=== PATIENT | male | born 1975 | race Caucasian/White ===

== ENCOUNTER 2019-08-26 09:42 | Emergency (ER) | payer BC ==
--- OUTSIDE RECORDS SUMMARY | 2019-08-26 09:53 | XMS REPORT | Summary of Care ---
:1975 Author Organization [facility] Address [address] [place] [address] Care Team Providers Name Role Phone Josh Nugent Primary Care Provider Reason for Visit Reason Comments Physical Patient here for routine physical. Encounter Details Date Type Department Care Team Description 07/22/2019 Office Visit [place] [facility] Josh Nugent, Routine general medical examination at a health care facility (Primary Dx); Medicine Essential hypertension [address] [place], [place] [address] [place] [address] [phone] Allergies Active Allergy Reactions Severity Noted Date Comments Penicillins Unknown Reaction 07/29/2012 documented as of this encounter (statuses as of 07/22/2019) Medications Medication Sig Dispensed Refills Start Date End Date Status LISINOPRIL-HCTZ 20-25 MG Take 1 Tab by 90 Tab 5 06/29/2019 Active Oral TabIndications: mouth DAILY. Essential hypertension documented as of this encounter (statuses as of 07/22/2019) Active Problems Problem Noted Date White coat syndrome with hypertension 09/03/2018 Essential hypertension Overview: on ACEI/HCTZ since 2009 documented as of this encounter (statuses as of 07/22/2019) Immunizations Name Administration Dates Next Due Influenza (IM) Preservative Free 03/24/2018, 04/24/2017 Influenza (IM) W/Pres 05/06/2015 documented as of this encounter Social History Tobacco Use Types Packs/Day Years Used Date Never Smoker Smokeless Tobacco: Never Used Alcohol Use Drinks/Week oz/Week Comments Yes 2 Cans of beer 2.0 occasionally Sex Assigned at Date Recorded Not on file Job Start Date Occupation Industry Not on file Not on file Not on file Travel History Travel Start Travel End No recent travel history available. documented as of this encounter Last Filed Vital Signs Vital Sign Reading Time Taken Comments Blood Pressure 124/62 07/22/2019 8:35 AM EST Pulse 65 07/22/2019 8:35 AM EST Temperature - - Respiratory Rate - - Oxygen Saturation - - Inhaled Oxygen Concentration - - Weight 96.2 kg (212 lb) 07/22/2019 8:35 AM EST Height 194.3 cm (6' 4.5") 07/22/2019 8:35 AM EST Body Mass Index 25.47 07/22/2019 8:35 AM EST documented in this encounter Patient Instructions Patient InstructionsJosh Nugent MD - 07/22/2019 8:20 AM ESTBlood work today Do core Exercises for the low back pain [facility] goal weight is 205 lb The 6 recommendations below are much more powerful than any medication or vitamin available on the market: 1. Engage in at least 30 minutes of regular moderate physical activity every day. This means exerting yourself so that you become slightly short of breath and have difficulty speaking a full sentence when you are exercising. This could be walking, running, biking, swimming, hiking, or any other type of gym activity. 2. Eat at least 6 servings per day fruit and vegetable 3. Get at least 7 hours of restful sleep per night 4. Do not smoke tobacco or marijuana products 5. Drink no more than 2 serving of alcohol per day 6. Drink at least 8 full glasses of water per day documented in this encounter Progress Notes Josh Nugent MD - 07/22/2019 8:20 AM EST SUBJECTIVE: Zhou Gregorio is a 44-y.o. male for presenting for his annual checkup. Patient Active Problem List Diagnosis Essential hypertension White coat syndrome with hypertension Current Outpatient Medications Medication Sig LISINOPRIL-HCTZ 20-25 MG Oral Tab Take 1 Tab by mouth DAILY. No current facility-administered medications for this visit. Allergies: Penicillins ROS: Feeling well. No dyspnea or chest pain on exertion. No abdominal pain, change in bowel habits,black or bloody stools. No urinary tract or prostatic symptoms. No neurological complaints. OBJECTIVE: The patient appears well, alert, oriented x 3, in no distress. BP 124/62 | Pulse 65 | Ht 6' 4.5" (1.943 m) | Wt 212 lb (96.2 kg) | BMI 25.47 kg/m ENT normal. Neck supple. No adenopathy or thyromegaly. MAN[place]. Lungs are clear, good air entry, no wheezes, rhonchi or rales. S1 and S2 normal, no murmurs, regular rate and rhythm. Abdomen is soft without tenderness, guarding, mass or organomegaly. exam: no penile lesions or discharge, no testicular masses or tenderness, no hernias. Rectal and prostate exam: deferred, not clinically indicated. Extremities show no edema, normal peripheral pulses. Neurological is normal without focal findings. I note only benign skin findings. No unusual rashes or suspicious skin lesions noted. Nails appear normal. 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 Engage in at least 30 minutes of regular moderate physical activity every day. This means exerting yourself so that you become slightly short of breath and have difficulty speaking a full sentence when you are exercising. This could be walking, running, biking, swimming, hiking, or any other type of gym activity. 2. Eat at least 6 servings per day fruit and vegetable 3. Get at least 7 hours of restful sleep per night 4. Do not smoke tobacco or marijuana products 5. Drink no more than 2 serving of alcohol per day 6. Drink at least 8 full glasses of water per day documented in this encounter Plan of Treatment Name Type Priority Associated Diagnoses Date/Time COMPREHENSIVE METABOLIC Lab Routine Essential hypertension 07/22/2019 9: 18 AM PANEL EST LIPID PROFILE Lab Routine Essential hypertension 07/22/2019 9:18 AM EST Health Maintenance Due Date Last Done Comments DTaP/Tdap/Td Vaccines (1985 Tdap) INFLUENZA VACCINE (#1) 2019 03/24/2018, 04/24/2017, 05/06/2015 DIABETES SCREENING 09/04/2019 09/03/2018, 05/29/2017, 06/15/2016, Additional history exists LIPID DISORDER SCREENING 09/04/2019 09/03/2018, 05/29/2017, 06/15/2016, Additional history exists DEPRESSION SCREENING 07/22/2020 07/22/2019 HEPATITIS A IMMUNIZATION Aged Out No longer eligible SERIES based on patient's age to complete this topic HPV IMMUNIZATION SERIES Aged Out No longer eligible based on patient's age to complete this topic MENINGOCOCCAL VACCINE IMM Aged Out No longer eligible based on patient's age to complete this topic PNEUMOCOCCAL 0-64 YRS Aged Out No longer eligible based on patient's age to complete this topic documented as of this encounter Goals Goal Patient Goal Associated Recent Patient-Stated? Author Type Problems Progress Blood Pressure Blood Pressure 124/62 No Jovanna, < 140/90 (07/22/2019 Josh Vega, 8:35 AM EST) Note: This is an individualized treatment (blood pressure) goal for Zhou Gregorio: Displayed above (on the left) is your goal for blood pressure control. Your most recent blood pressure is also shown above, on the right. You should try to achieve blood pressures that are lower than your goal listed above (on the left). Take all prescribed medications as Self-management Josh Lambert MD directed Note: This is an individualized self-management goal for Zhou Gregorio: Please take all prescribed medications as directed. 1. Do not skip doses. If you cannot afford your medications, talk with your doctor. 2. Use a pill reminder system such as a pill box if needed. Your pharmacist can help you with this. 3. Contact your Pharmacy 5 days before your medication runs out. If you cannot take your medications for any reasons, talk with your doctor. 4. Please bring all of your medication bottles and inhalers (or a list of all your medications/inhalers) with you to every visit. Potential barriers to meeting all of your care plan goals will continue to be addressed on an ongoing basis. documented as of this encounter Results Not on filedocumented in this encounter Visit Diagnoses Diagnosis Essential hypertension Unspecified essential hypertension Routine general medical examination at a health care facility documented in this encounter Guarantor Name Account Type Relation to Date of Phone Billing Patient Address Zhou Gregorio Personal/Family 1975 [address] (Home) [place] [phone] [place], [place] (Work) [id number] documented as of this encounter
[2019-08-26 10:00] VITALS: BP 114/77
--- NOTE | 2019-08-26 10:06 | UC ---
Skin Complaint HPI - HPI Summary HPI Summary: 44-year-old male who started experiencing some pain to his distal left index finger a few days ago and then last evening it started throbbing and was red. He soaked it and states that it became more painful after soaking it. Last tetanus is up-to-date. He states that occasionally he will trim his fingernails a little too close. - History of Current Complaint Chief Complaint: UCUpperExtremity Time Seen by Provider: 08/26/19 10:05 Stated Complaint: FINGER ISSUE Hx Obtained From: Patient Onset/Duration: Gradual Onset Skin Exposure Onset/Duration: Days Ago Timing: Constant Onset Severity: Mild Current Severity: Mild Pain Intensity: 3 Location: Other - Left index finger Character: Swelling, Pain, Redness Aggravating Factor(s): Touch Alleviating Factor(s): Nothing Associated Signs & Symptoms: Positive: Tenderness - Allergy/Home Medications Allergies/Adverse Reactions: Allergies Allergy/AdvReac Type Severity Reaction Status Date / Time Penicillins Allergy Unknown Verified 08/26/19 09:54 Reaction Details Home Medications: Home Medications Cephalexin CAP* [Keflex 250 CAP*] 250 mg PO TID 7 Days #21 cap 08/26/19 [Rx] lisinopriL [Lisinopril] 1 tab PO DAILY 08/26/19 [History Confirmed 08/26/19] PMH/Surg Hx/FS Hx/Imm Hx Previously Healthy: Yes Cardiovascular History: Hypertension - Surgical History Surgical History: None - Family History Known Family History: Positive: Unknown - Social History Occupation: Employed Full-time Lives: With Family Alcohol Use: Weekly Substance Use Type: None Smoking Status (MU): Never Smoked Tobacco Review of Systems All Other Systems Reviewed And Are Negative: Yes Skin: Positive: Other - Mild redness and swelling to the distal left index finger. Is Patient Immunocompromised?: No Physical Exam Triage Information Reviewed: Yes Appearance: Well-Appearing, No Pain Distress, Well-Nourished Vital Signs: Initial Vital Signs Temp 98 F 08/26/19 09:55 Pulse 75 08/26/19 09:55 Resp 18 08/26/19 09:55 BP 114/77 08/26/19 09:55 Pulse Ox 98 08/26/19 09:55 Vital Signs Reviewed: Yes Musculoskeletal Exam: Normal Neurological Exam: Normal Psychological Exam: Normal Skin: Positive: Other - Patient has a small paronychia to the distal left index finger. Course/Dx - Course Course Of Treatment: Patient is comfortable here. I put a small lalitha in the skin where the area of pus is visible below the skin but nothing was expressed. We discussed follow- up for any worsening symptoms to the ER or his primary care provider. - Diagnoses Provider Diagnosis: Paronychia of left index finger Discharge ED - Sign-Out/Discharge Documenting (check all that apply): Patient Departure All imaging exams completed and their final reports reviewed: No Studies - Discharge Plan Condition: Good Disposition: HOME Prescriptions: Cephalexin CAP* [Keflex 250 CAP*] 250 mg PO TID 7 Days #21 cap Patient Education Materials: Paronychia (ED) Referrals: Josh Nugent MD [Primary Care Provider] - Additional Instructions: Warm salt water soaks 4-6 times a day for 15-20 minutes each time. Definite follow-up with your primary care provider if no improvement in 3 or 4 days. If you develop any worsening of symptoms or red streaks up your hand or arm then you are to go to the emergency room for further treatment. - Billing Disposition and Condition Condition: GOOD Disposition: Home
== END 2019-08-26 10:22 | disposition home or self-care (01) ==
LOC: UCEAST 09:42
DX: L03.012 Cellulitis of left finger (principal); I10 Essential (primary) hypertension; Z88.0 Allergy status to penicillin; Z79.899 Other long term (current) drug therapy
CPT/HCPCS: 99212; G0463

== ENCOUNTER 2019-08-28 21:42 | Emergency (ER) | payer BC ==
--- OUTSIDE RECORDS SUMMARY | 2019-08-28 21:46 | XMS REPORT | Summary of Care ---
:1975 Author Organization [facility] Address [address] [place] [address] Care Team Providers Name Role Phone Josh Nugent Primary Care Provider Reason for Visit Reason Comments ER F/U Patient was seen at [facility] on 08/26/2019 for left pointer finger infection. Encounter Details Date Type Department Care Team Description 08/28/2019 Office Visit [place] [facility] Josh Nugent, Paronychia of left Medicine index finger (Primary [address]) [place] [address] [place] [address] [phone] Allergies Active Allergy Reactions Severity Noted Date Comments Penicillins Unknown Reaction 07/29/2012 documented as of this encounter (statuses as of 08/28/2019) Medications Medication Sig Dispensed Refills Start Date End Date Status LISINOPRIL-HCTZ 20-25 MG Take 1 Tab by 90 Tab 5 06/29/2019 Active Oral TabIndications: mouth DAILY. Essential hypertension documented as of this encounter (statuses as of 08/28/2019) Active Problems Problem Noted Date White coat syndrome with hypertension 09/03/2018 Essential hypertension Overview: on ACEI/HCTZ since 2009 documented as of this encounter (statuses as of 08/28/2019) Immunizations Name Administration Dates Next Due Influenza (IM) Preservative Free 03/24/2018, 04/24/2017 Influenza (IM) W/Pres 05/06/2015 documented as of this encounter Social History Tobacco Use Types Packs/Day Years Used Date Never Smoker Smokeless Tobacco: Never Used Alcohol Use Drinks/Week oz/Week Comments Yes 2 Cans of beer 2.0 occasionally Sex Assigned at Date Recorded Not on file documented as of this encounter Last Filed Vital Signs Vital Sign Reading Time Taken Comments Blood Pressure 120/70 08/28/2019 9:33 AM EST Pulse 93 08/28/2019 9:33 AM EST Temperature 36.7 08/28/2019 9:33 AM EST C (98.1 F) Respiratory Rate - - Oxygen Saturation 98% 08/28/2019 9:33 AM EST Inhaled Oxygen Concentration - - Weight 98.4 kg (217 lb) 08/28/2019 9:33 AM EST Height 194.3 cm (6' 4.5") 08/28/2019 9:33 AM EST Body Mass Index 26.07 08/28/2019 9:33 AM EST documented in this encounter Progress Notes Josh Nugent MD - 08/28/2019 9:40 AM EST PATIENT: Zhou Gregorio : 1975 DATE OF SERVICE: 08/28/2019 CHIEF COMPLAINT: Chief Complaint Patient presents with ? ER F/U Patient was seen at [facility] on 08/26/2019 for left pointer finger infection. Subjective HISTORY OF PRESENT ILLNESS: Zhou Gregorio is a 44-y.o. male. HPI Follow up to [facility] seen Wed for paronychia left index finger with tense bullae he is on keflex 2 days no redness of proximal finger and no pus the bullae is tense and painful trouble sleeping despite ibuprofen 800 mg three times daily He states convenient care center he had needle drainage of blister but still tense and painful Nail is intact Past Medical History: Diagnosis Date ? Disc herniation Lumbar no surgery ? Hypertension on ACEI/HCTZ since 2009 Family History Problem Relation Age of Onset ? Heart Mother ? Alcohol/Drug Father ? Hypertension Brother Current Outpatient Medications Medication Sig ? LISINOPRIL-HCTZ 20-25 MG Oral Tab Take 1 Tab by mouth DAILY. No current facility-administered medications for this visit. Allergies Allergen Reactions ? Penicillins Unknown Reaction Social History Socioeconomic History ? Marital status: Spouse name: Not on file ? Number of children: Not on file ? Years of education: Not on file ? Highest education level: Not on file Occupational History ? Not on file Social Needs ? Financial resource strain: Not on file ? Food insecurity Worry: Not on file Inability: Not on file ? Transportation needs Medical: Not on file Non-medical: Not on file Tobacco Use ? Smoking status: Never Smoker ? Smokeless tobacco: Never Used Substance and Sexual Activity ? Alcohol use: Yes Alcohol/week: 2.0 standard drinks Types: 2 Cans of beer per week Comment: occasionally ? Drug use: No ? Sexual activity: Yes Partners: Female Lifestyle ? Physical activity Days per week: Not on file Minutes per session: Not on file ? Stress: Not on file Relationships ? Social connections Talks on phone: Not on file Gets together: Not on file Attends pentecostal service: Not on file Active member of club or organization: Not on file Attends meetings of clubs or organizations: Not on file Relationship status: Not on file ? Intimate partner violence Fear of current or ex partner: Not on file Emotionally abused: Not on file Physically abused: Not on file Forced sexual activity: Not on file Other Topics Concern ? Back Care Not Asked ? Bike Helmet Not Asked ? Blood Transfusions Not Asked ? Caffeine Concern Not Asked ? Exercise Not Asked ? Hobby Hazards Not Asked ? International Travel Not Asked ? Service Not Asked ? Occupational Exposure Not Asked ? Seat Belt Not Asked ? Self-Exams Not Asked ? Sleep Concern No ? Special Diet No ? Stress Concern No ? 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 ROS no fevers or systemic infectious symptoms Objective PHYSICAL EXAM: VITALS: BP 120/70 | Pulse 93 | Temp 98.1 F (36.7 C) | Ht 6' 4.5" ( 1.943 m) | Wt 217 lb (98.4 kg) | SpO2 98% | BMI 26.07 kg/m Body mass index is 26.07 kg/m. Physical Exam left index finger distal paronychia with tense bullae No streaky erythema proximal finger nail is intact there is redness swelling and tenderness of the distal finer tuft Using aseptic technique and 21 gauge needle the bullae was drained of clear red serosanguinous fluidpatient tolerated this well ASSESSMENT / IMPRESSION: ICD-9-CM ICD-10-CM 1. Paronychia of left index finger bacitracin cover it epsom salt soaks and continue keflex reassurance that it wll resolve he declines stronger pain medication use ibuprofen three times daily As needed 681.02 L03.012 Josh Nugent MD 08/28/2019 10:16 documented in this encounter Plan of Treatment Health Maintenance Due Date Last Done Comments DTaP/Tdap/Td Vaccines (1 - 1985 Tdap) INFLUENZA VACCINE (#1) 2019 03/24/2018, 04/24/2017, 05/06/2015 DEPRESSION SCREENING 07/22/2020 07/22/2019 DIABETES SCREENING 07/22/2020 07/22/2019, 09/03/2018, 05/29/2017, Additional history exists LIPID DISORDER SCREENING 07/22/2020 07/22/2019, 09/03/2018, 05/29/2017, Additional history exists HEPATITIS A IMMUNIZATION Aged Out No longer [...] Type Problems Progress Blood Pressure Blood Pressure 120/70 No Jovanna, < 140/90 (08/28/2019 Josh Vega, 9:33 AM EST) Note: This is an individualized [...] filedocumented in this encounter Visit Diagnoses Diagnosis Paronychia of left index finger documented in this encounter (Home) [place] [phone] [place], [place] (Work) [id number] documented as of this encounter
[2019-08-28 21:55] VITALS: BP 144/90
--- NOTE | 2019-08-28 22:05 | UC ---
Skin Complaint HPI - HPI Summary HPI Summary: 44 yo male presents with LEFT index finger paronychia. He tells me that he was seen here 2 days ago and placed on keflex and the area was lanced at that time without drainage. Since that time has increased in size and pain. He saw his PCP today and had it lanced again and copious purulent matter was expressed. He was advised to continue keflex and warm soaks. He comes tonight because he noticed some swelling and redness to his proximal index finger and just inferior to the MCP which concerned him. Pain is improved since I&D earlier at PCP's office. Denies fever or hx of MRSA. - History of Current Complaint Chief Complaint: UCSkin Time Seen by Provider: 08/28/19 21:55 Stated Complaint: FINGER PAIN Hx Obtained From: Patient Onset/Duration: Sudden Onset Onset Severity: Moderate Current Severity: Mild Pain Intensity: 3 Pain Scale Used: 0-10 Numeric - Allergy/Home Medications Allergies/Adverse Reactions: Allergies Allergy/AdvReac Type Severity Reaction Status Date / Time Penicillins Allergy Unknown Verified 08/28/19 21:49 Reaction Details Home Medications: Home Medications Cephalexin CAP* [Keflex 250 CAP*] 250 mg PO TID 7 Days #21 cap 08/26/19 [Rx Confirmed 08/28/19] Ibuprofen 800 mg PO ONCE PRN 08/28/19 [History Confirmed 08/28/19] Lisinopril/Hydrochlorothiazide [Lisinopril-Hctz 20-25 mg Tab] 1 tab PO DAILY 12/11 [History Confirmed 08/28/19] clindamycin HCL [Clindamycin HCl] 300 mg PO TID 5 Days #15 capsule 08/28/19 [Rx] PMH/Surg Hx/FS Hx/Imm Hx Cardiovascular History: Hypertension - Surgical History Surgical History: None - Family History Known Family History: Positive: None - Social History Occupation: Employed Full-time Lives: With Family Alcohol Use: Weekly Alcohol Amount: weekends Substance Use Type: None Smoking Status (MU): Never Smoked Tobacco Review of Systems All Other Systems Reviewed And Are Negative: No Constitutional: Positive: Negative Skin: Positive: Other - Paronychia left index finger Respiratory: Positive: Negative Cardiovascular: Positive: Negative Musculoskeletal: Positive: Negative Neurological/Mental Status: Positive: Negative Psychological: Positive: Negative Physical Exam - Summary Physical Exam Summary: GENERAL: NAD. WDWN. No pain distress. SKIN: LEFT INDEX FINGER: dorsal aspect of distal finger with 1.5cm blister with clear/yellow fluid within. Mildly TTP. Whole digit with mild-moderate edema. Faint erythema with a thin streak to mid 2nd MC. No warmth or tenderness on dorsal hand. FROM at all MCPs. NECK: Supple. Nontender. No lymphadenopathy. CHEST: No accessory muscle use. Breathing comfortably and in no distress. CV: Pulses intact. Cap refill <2seconds MSK: Decreased ROM to left index finger PIP and DIP due to edema. FROM MCP. NEURO: Alert. PSYCH: Age appropriate behavior. Triage Information Reviewed: Yes Vital Signs: Initial Vital Signs Temp 99.3 F 08/28/19 21:45 Pulse 96 08/28/19 21:45 Resp 18 08/28/19 21:45 BP 144/90 08/28/19 21:45 Pulse Ox 98 08/28/19 21:45 Vital Signs Reviewed: Yes Course/Dx - Course Course Of Treatment: Left index finger with clear/yellow thin drainage - culture obtained. Dressed with telfa and tubegauze. I believe now that the paronychia has been drained earlier today, the finger will heal; but given his streaking and edema he was given 1gm ceftriaxone in the clinic this evening and advised to ice the finger and elevate. Will have him complete keflex and will rx for clindamycin for MRSA coverage and await culture results. Strongly cautioned on worsening symptoms such as increased pain/swelling/redness , fever, or further streaking - if he develops these to go directly to the ED. Pt voiced understanding and agrees with plan. - Diagnoses Provider Diagnosis: Paronychia of left index finger Discharge ED - Sign-Out/Discharge Documenting (check all that apply): Patient Departure All imaging exams completed and their final reports reviewed: No Studies - Discharge Plan Condition: Stable Disposition: HOME Prescriptions: clindamycin HCL [Clindamycin HCl] 300 mg PO TID 5 Days #15 capsule Patient Education Materials: Paronychia (ED) Referrals: Josh Nugent MD [Primary Care Provider] - Additional Instructions: If you develop a fever, shortness of breath, chest pain, new or worsening symptoms - please call your PCP or go to the ED immediately. Your blood pressure was high at todays visit. Please see your primary provider within 4 weeks for recheck and re-evaluation. 1) Continue soaking your finger and change the dressing daily 2) Take BOTH the Keflex and Clindamycin as prescribed 3) If you notice a fever, worsening redness/swelling, or increased pain - please go to the ER for further evaluation. If you are unsure how your finger is doing, you can always return to the Urgent Care for a recheck - Billing Disposition and Condition Condition: STABLE Disposition: Home
[2019-08-28] MEDS ORDERED: Lidocaine 1% MPF ** 5 ML VIAL IM ONE (22:06)
[2019-08-28] MEDS ORDERED: cefTRIAXone VIAL(*) 250 MG VIAL IM ONE (22:06)
[2019-08-28] MEDS ORDERED: Lidocaine 1% MPF ** 5 ML VIAL INJ ONE (22:11)
[2019-08-28] MEDS ORDERED: cefTRIAXone VIAL(*) 1,000 MG VIAL IM ONE (22:14)
== END 2019-08-28 22:34 | disposition home or self-care (01) ==
LOC: UCEAST 21:42
DX: L03.012 Cellulitis of left finger (principal); I10 Essential (primary) hypertension; Z88.0 Allergy status to penicillin; Z79.899 Other long term (current) drug therapy
CPT/HCPCS: 87070; 87205; 96372; 99212; G0463; J0696